=== PATIENT | female | born 1970 | race Asian ===

== ENCOUNTER 2024-02-13 21:21 | Inpatient (IN) | payer OTHER ==
[~2024-02-13] VITALS: Ht 165.1 cm; Wt 71.7 kg
[2024-02-13 21:41] VITALS: BP 183/94; PULSE 69; RESP 18; TEMP 98.2; O2SAT 96
[2024-02-13 22:29] LABS: BASOPHILS % (AUTO) 0.2 % (0.0-2.0); EOSINOPHILS % (AUTO) 0.1 % (0.0-4.0); HEMATOCRIT 39.9 % (36-48); LYMPHOCYTES # (AUTO) 0.6 K/uL (2.5-16.5); MEAN CORPUSCULAR HEMOGLOBIN 27 pg (27-31); MEAN CORPUSCULAR HGB CONC 33 g/dL (33-37); MONOCYTES # (AUTO) 0.4 K/uL (0.8-1.0); MONOCYTES % (AUTO) 3.2 % (1.7-9.3); NEUTROPHILS # (AUTO) 11.1 K/uL (1.8-7.7); PLATELET COUNT (AUTO) 261 K/uL (140-450); RED BLOOD CELL COUNT(AUTO) 4.75 MIL/uL (4.20-5.40); RED CELL DISTRIBUTION WIDTH 16.6 % (11.6-13.7); WHITE BLOOD COUNT (AUTO) 12.1 K/uL (4.8-10.8)
[2024-02-13 22:30] LABS: APPEARANCE,URINE CLOUDY (CLEAR); BILIRUBIN,URINE NEGATIVE (NEGATIVE); BLOOD, URINE 1+ (NEGATIVE); COLOR,URINE YELLOW (YELLOW); LEUKOCYTE ESTERASE ,URINE NEGATIVE (NEGATIVE); NITRITE, URINE NEGATIVE (NEGATIVE); PROTEIN,URINE 3+ (NEGATIVE); UGLUCOSE TRACE (NEGATIVE); UROBILINOGEN,URINE 0.2 EU/dL (0.2 - 1)
[2024-02-13 22:31] VITALS: O2SAT 96
[2024-02-13 22:43] LABS: BACTERIA,URINE 2+ /HPF (None Seen); WBC,URINE 0-5 /HPF (0-5)
[2024-02-13 22:44] LABS: SQUAMOUS EPITHELIAL CELL,UR 4-10 (MOD) /LPF (0-3 (FEW)); URINE AMORPHOUS PHOSPHATES 1+ /HPF (None Seen)
[2024-02-13 22:47] LABS: CALCIUM 8.7 mg/dL (8.5-10.1); CREATININE 0.9 mg/dL (0.6-1.3); POTASSIUM 3.5 mmol/L (3.5-5.1)
[2024-02-13 22:52] LABS: CARBON DIOXIDE 29.5 mmol/L (21-32)
[2024-02-13 22:54] LABS: ALANINE AMINOTRANSFERASE 38 U/L (12-78); ALBUMIN 3.7 g/dL (3.4-5.0); ALKALINE PHOSPHATASE 83 U/L (50-136); ASPARTATE AMINOTRANSFERASE 24 U/L (15-37); BILIRUBIN,DIRECT 0.3 mg/dL (0.0-0.3); LIPASE 54 U/L (16-77); TOTAL BILIRUBIN 1.6 mg/dL (0.0-1.0); TOTAL PROTEIN, SERUM 8.5 g/dL (6.4-8.2)
[2024-02-13 22:56] LABS: NEUTROPHILS % (AUTO) 91.5 % (42.2-75.2)
[2024-02-13] MEDS: NACL 0.9% 1,000 ML IV ONE (23:00)
[2024-02-13] MEDS: KETOROLAC 30 MG/ML VIAL IVP ONE (23:02)
[2024-02-13] MEDS: ONDANSETRON 4 MG/2 ML VIAL IVP ONE (23:02)
[2024-02-14] VITALS (7 sets, daily range): BP systolic 147; BP diastolic 80–84; PULSE 18–78; RESP 18; TEMP 98.3; O2SAT 94–98
[2024-02-14] MEDS ORDERED: PIPERACILLIN/TAZOBACTAM 3.375 GM VIAL IV ONE (01:55)
[2024-02-14] MEDS ORDERED: MAG SULF 2000 MG/WATER PREMIX 50 ML IV PRN (02:00)
[2024-02-14] MEDS ORDERED: KCL 20 MEQ IN 100 mL PREMIX 200 ML IV PRN (02:00)
[2024-02-14] MEDS ORDERED: ONDANSETRON 4 MG/2 ML VIAL IVP PRN (02:00)
[2024-02-14] MEDS: PIPERACILLIN/TAZOBACTAM 3.375 GM in DEXTROSE 5% 50 ML IV ONE (02:01)
[2024-02-14] MEDS: NACL 0.9% 1,000 ML IV SCH (02:23)
[2024-02-14] MEDS: MORPHINE SULFATE 4 MG/ML SYR IVP PRN (03:58)
[2024-02-14 08:17] LABS: BASOPHILS % (AUTO) 0.1 % (0.0-2.0); HEMATOCRIT 37.9 % (36-48); HEMOGLOBIN 12.3 g/dL (12.0-16.0); LYMPHOCYTES # (AUTO) 0.8 K/uL (2.5-16.5); LYMPHOCYTES % (AUTO) 6.6 % (20.5-51.1); MEAN CORPUSCULAR HEMOGLOBIN 27 pg (27-31); MEAN CORPUSCULAR HGB CONC 33 g/dL (33-37); MEAN CORPUSCULAR VOLUME 84.2 fL (80-94); MONOCYTES # (AUTO) 1.1 K/uL (0.8-1.0); MONOCYTES % (AUTO) 8.9 % (1.7-9.3); NEUTROPHILS # (AUTO) 10.6 K/uL (1.8-7.7); NEUTROPHILS % (AUTO) 84.4 % (42.2-75.2); PLATELET COUNT (AUTO) 243 K/uL (140-450); RED CELL DISTRIBUTION WIDTH 16.4 % (11.6-13.7); WHITE BLOOD COUNT (AUTO) 12.6 K/uL (4.8-10.8)
[2024-02-14 08:25] LABS: INR 0.99 (0.8-1.2); PARTIAL THROMBOPLASTIN TIME 26.3 secs (22-35.6); PROTHROMBIN TIME 10.4 secs (10.8-13.4)
[2024-02-14 08:27] LABS: ALBUMIN 3.2 g/dL (3.4-5.0); ANION GAP 12.4 (8-16); CARBON DIOXIDE 27.3 mmol/L (21-32); CREATININE 0.9 mg/dL (0.6-1.3); POTASSIUM 3.7 mmol/L (3.5-5.1); TOTAL BILIRUBIN 2.6 mg/dL (0.0-1.0); TOTAL PROTEIN, SERUM 7.6 g/dL (6.4-8.2)
[2024-02-14] MEDS: DOCUSATE SODIUM 100 MG GELCAP PO SCH (10:20)
[2024-02-14] MEDS: ACETAMINOPHEN 325 MG TAB PO PRN (10:21)
[2024-02-14] MEDS: AMPICILLIN/SULBACTAM 3 GM in NACL 0.9% 100 ML IV SCH (13:00)
[2024-02-14] MEDS: MEDS-TO-BEDS MC SCH (21:41)
[2024-02-15] VITALS (7 sets, daily range): BP systolic 148–178; BP diastolic 89–104; PULSE 67–86; RESP 18; TEMP 96.4–98.5; O2SAT 94–97
[2024-02-15 06:52] LABS: BASOPHILS % (AUTO) 0.2 % (0.0-2.0); EOSINOPHILS # (AUTO) 0.1 K/uL (0-0.4); EOSINOPHILS % (AUTO) 1.5 % (0.0-4.0); LYMPHOCYTES # (AUTO) 0.8 K/uL (2.5-16.5); MEAN CORPUSCULAR HEMOGLOBIN 28 pg (27-31); MEAN CORPUSCULAR HGB CONC 34 g/dL (33-37); MONOCYTES # (AUTO) 0.6 K/uL (0.8-1.0); MONOCYTES % (AUTO) 6.3 % (1.7-9.3); NEUTROPHILS # (AUTO) 7.6 K/uL (1.8-7.7); PLATELET COUNT (AUTO) 230 K/uL (140-450); RED BLOOD CELL COUNT(AUTO) 4.28 MIL/uL (4.20-5.40); RED CELL DISTRIBUTION WIDTH 16.6 % (11.6-13.7); WHITE BLOOD COUNT (AUTO) 9.2 K/uL (4.8-10.8)
[2024-02-15 07:01] LABS: ALBUMIN 2.9 g/dL (3.4-5.0); ANION GAP 12.6 (8-16); CARBON DIOXIDE 26.7 mmol/L (21-32); CREATININE 0.8 mg/dL (0.6-1.3); MAGNESIUM 1.9 mg/dL (1.8-2.4); POTASSIUM 3.3 mmol/L (3.5-5.1); TOTAL BILIRUBIN 2.1 mg/dL (0.0-1.0); TOTAL PROTEIN, SERUM 7.2 g/dL (6.4-8.2)
[2024-02-15 07:09] LABS: BILIRUBIN,DIRECT 0.4 mg/dL (0.0-0.3)
[2024-02-15] MEDS: hydrALAZINE 25 MG TAB PO PRN (08:33)
[2024-02-15] MEDS: POTASSIUM CHLORIDE 10 MEQ TABER PO PRN (08:33)
[2024-02-15] MEDS: HYDROcodone/APAP 5/325 MG 1 TAB TAB PO PRN (13:10)
[2024-02-15] MEDS: hydrALAZINE 20 MG/ML VIAL IVP PRN (17:42)
[2024-02-16] VITALS: BP 155/85; PULSE 70; PULSE 86; RESP 18; TEMP 98.5; O2SAT 97
[2024-02-16 04:00] VITALS: BP 152/85; PULSE 84; RESP 18; TEMP 98.3; O2SAT 97
[2024-02-16 06:14] LABS: BASOPHILS % (AUTO) 0.4 % (0.0-2.0); EOSINOPHILS # (AUTO) 0.2 K/uL (0-0.4); EOSINOPHILS % (AUTO) 2.8 % (0.0-4.0); HEMATOCRIT 37.1 % (36-48); HEMOGLOBIN 12.2 g/dL (12.0-16.0); LYMPHOCYTES % (AUTO) 13.7 % (20.5-51.1); MEAN CORPUSCULAR HEMOGLOBIN 28 pg (27-31); MEAN CORPUSCULAR HGB CONC 33 g/dL (33-37); MEAN CORPUSCULAR VOLUME 83.8 fL (80-94); MONOCYTES # (AUTO) 0.5 K/uL (0.8-1.0); MONOCYTES % (AUTO) 7.3 % (1.7-9.3); NEUTROPHILS # (AUTO) 5.7 K/uL (1.8-7.7); NEUTROPHILS % (AUTO) 75.8 % (42.2-75.2); PLATELET COUNT (AUTO) 252 K/uL (140-450); RED BLOOD CELL COUNT(AUTO) 4.42 MIL/uL (4.20-5.40); RED CELL DISTRIBUTION WIDTH 16.6 % (11.6-13.7); WHITE BLOOD COUNT (AUTO) 7.5 K/uL (4.8-10.8)
[2024-02-16 06:41] LABS: ALBUMIN 2.6 g/dL (3.4-5.0); ANION GAP 11.9 (8-16); CALCIUM 7.9 mg/dL (8.5-10.1); CARBON DIOXIDE 25.6 mmol/L (21-32); CREATININE 0.7 mg/dL (0.6-1.3); MAGNESIUM 1.8 mg/dL (1.8-2.4); POTASSIUM 3.5 mmol/L (3.5-5.1); TOTAL BILIRUBIN 1.3 mg/dL (0.0-1.0); TOTAL PROTEIN, SERUM 6.8 g/dL (6.4-8.2)
[2024-02-16] MEDS: LACTATED RINGERS 1,000 ML IV SCH (07:20)
[2024-02-16] MEDS ORDERED: ACETAMINOPHEN 100 ML IV SCH (07:20)
[2024-02-16] MEDS ORDERED: ONDANSETRON 4 MG/2 ML VIAL IVP PRN (07:20)
[2024-02-16] MEDS: LIDOCAINE/EPI 1% 1:100000 20 ML VIAL INJ ONE ×2 (07:27→09:49)
[2024-02-16] MEDS ORDERED: SEVOFLURANE 250 ML BTL INH ONE (07:36)
[2024-02-16] MEDS: MIDAZOLAM 2 MG/2 ML VIAL ONE (07:38)
[2024-02-16] MEDS: fentaNYL citrate 0.05 MG/ML VIAL ONE (07:38)
[2024-02-16] MEDS: METOCLOPRAMIDE 10 MG/2 ML INJ VIAL ONE (07:39)
[2024-02-16] MEDS: ONDANSETRON 4 MG/2 ML VIAL ONE (07:39)
[2024-02-16] MEDS: DEXAMETHASONE 4 MG/ML VIAL ONE (07:39)
[2024-02-16] MEDS: PROPOFOL 200 MG/20 ML VIAL IV ONE (07:40)
[2024-02-16] MEDS: SUCCINYLCHOLINE CHLORIDE 200 MG/10 ML VIAL IVP ONE (07:40)
[2024-02-16] MEDS: ROCURONIUM 50 MG/5 ML VIAL IV ONE (07:40)
[2024-02-16] MEDS: ceFAZolin 2,000 MG VIAL ONE (07:48)
[2024-02-16] MEDS: HYDROmorphone 1 MG/ML AMP IVP PRN (09:42)
[2024-02-16] MEDS: HYDROmorphone PFS 2 MG/ML SYR ONE (09:49)
[2024-02-16] MEDS: SUGAMMADEX SODIUM 200 MG/2 ML VIAL IV ONE (09:50)
[2024-02-16 10:20] VITALS: BP 155/86; PULSE 91; RESP 20; TEMP 97; O2SAT 95
[2024-02-16] MEDS: PANTOPRAZOLE 40 MG INJ VIAL IVP SCH (15:24)
[2024-02-16 16:00] VITALS: BP 156/99; PULSE 82; RESP 19; TEMP 96.3; O2SAT 95
[2024-02-16 20:00] VITALS: BP 177/98; PULSE 82; RESP 20; TEMP 97.5; O2SAT 95
[2024-02-17] VITALS: BP 149/83; PULSE 83; RESP 19; TEMP 97.4; O2SAT 96
[2024-02-17 04:00] VITALS: BP 175/79; PULSE 79; RESP 18; TEMP 97.6; O2SAT 94
[2024-02-17 06:48] LABS: BASOPHILS % (AUTO) 0.2 % (0.0-2.0); EOSINOPHILS # (AUTO) 0.1 K/uL (0-0.4); EOSINOPHILS % (AUTO) 0.7 % (0.0-4.0); HEMATOCRIT 36.9 % (36-48); HEMOGLOBIN 12.1 g/dL (12.0-16.0); LYMPHOCYTES # (AUTO) 1.3 K/uL (2.5-16.5); LYMPHOCYTES % (AUTO) 18.2 % (20.5-51.1); MEAN CORPUSCULAR HEMOGLOBIN 28 pg (27-31); MEAN CORPUSCULAR HGB CONC 33 g/dL (33-37); MEAN CORPUSCULAR VOLUME 84.2 fL (80-94); MONOCYTES # (AUTO) 0.7 K/uL (0.8-1.0); MONOCYTES % (AUTO) 9.6 % (1.7-9.3); NEUTROPHILS # (AUTO) 5.2 K/uL (1.8-7.7); NEUTROPHILS % (AUTO) 71.3 % (42.2-75.2); PLATELET COUNT (AUTO) 288 K/uL (140-450); RED BLOOD CELL COUNT(AUTO) 4.38 MIL/uL (4.20-5.40); RED CELL DISTRIBUTION WIDTH 16.5 % (11.6-13.7); WHITE BLOOD COUNT (AUTO) 7.3 K/uL (4.8-10.8)
[2024-02-17 08:00] VITALS: BP 160/91; PULSE 85; RESP 19; TEMP 96.6; O2SAT 95
[2024-02-17 09:58] LABS: ALBUMIN 2.7 g/dL (3.4-5.0); ANION GAP 14.9 (8-16); CALCIUM 8.1 mg/dL (8.5-10.1); CARBON DIOXIDE 23.2 mmol/L (21-32); CREATININE 0.8 mg/dL (0.6-1.3); POTASSIUM 3.1 mmol/L (3.5-5.1); TOTAL BILIRUBIN 1.1 mg/dL (0.0-1.0)
[2024-02-17 10:16] LABS: MAGNESIUM 1.7 mg/dL (1.8-2.4)
[2024-02-17] MEDS: MAGNESIUM OXIDE 400 MG TAB PO PRN (11:12)
[2024-02-17] MEDS ORDERED: ACET-9535 PO (14:34)
[2024-02-17 16:00] VITALS: BP 192/105; PULSE 99; RESP 19; TEMP 97.3; O2SAT 96
[2024-02-17 20:00] VITALS: BP 125/80; PULSE 95; PULSE 98; RESP 16; TEMP 98.7; O2SAT 98
[2024-02-18 04:00] VITALS: BP 159/89; PULSE 82; PULSE 97; RESP 18; TEMP 98.6; O2SAT 97
[2024-02-18 06:36] LABS: BASOPHILS % (AUTO) 0.3 % (0.0-2.0); EOSINOPHILS # (AUTO) 0.1 K/uL (0-0.4); EOSINOPHILS % (AUTO) 1.8 % (0.0-4.0); HEMOGLOBIN 12.1 g/dL (12.0-16.0); LYMPHOCYTES # (AUTO) 1.2 K/uL (2.5-16.5); LYMPHOCYTES % (AUTO) 20.5 % (20.5-51.1); MEAN CORPUSCULAR HEMOGLOBIN 28 pg (27-31); MEAN CORPUSCULAR HGB CONC 33 g/dL (33-37); MEAN CORPUSCULAR VOLUME 83.9 fL (80-94); MONOCYTES # (AUTO) 0.5 K/uL (0.8-1.0); MONOCYTES % (AUTO) 9.2 % (1.7-9.3); NEUTROPHILS % (AUTO) 68.2 % (42.2-75.2); PLATELET COUNT (AUTO) 290 K/uL (140-450); RED BLOOD CELL COUNT(AUTO) 4.41 MIL/uL (4.20-5.40); RED CELL DISTRIBUTION WIDTH 16.7 % (11.6-13.7); WHITE BLOOD COUNT (AUTO) 5.9 K/uL (4.8-10.8)
[2024-02-18 07:42] LABS: ALBUMIN 2.7 g/dL (3.4-5.0); CALCIUM 8.4 mg/dL (8.5-10.1); CARBON DIOXIDE 27.2 mmol/L (21-32); CREATININE 0.8 mg/dL (0.6-1.3); MAGNESIUM 1.9 mg/dL (1.8-2.4); POTASSIUM 3.2 mmol/L (3.5-5.1)
[2024-02-18 08:00] VITALS: BP 170/107; PULSE 18; PULSE 80; PULSE 96; RESP 16; RESP 18; TEMP 97.3; O2SAT 96; O2SAT 98
[2024-02-18] MEDS: LOSARTAN 25 MG TAB PO SCH (09:49)
[2024-02-18] MEDS: FUROSEMIDE 20 MG/2 ML VIAL IVP SCH (09:51)
[2024-02-18] MEDS ORDERED: LOSA-269 PO (09:59)
[2024-02-18 13:53] VITALS: BP 171/93; PULSE 83; RESP 20; TEMP 97.5
== END 2024-02-18 14:55 | disposition home or self-care (01) | DRG 263 ==
LOC: MED 21:21 → MTU 02-14 02:02
PROVIDERS: ADMIT Hospitalist; ATTEND Hospitalist
PROC: 0FT44ZZ Resection of Gallbladder, Percutaneous Endoscopic Approach (ICD-10-PCS; principal; 2024-02-16 07:30)
DX: K81.0 Acute cholecystitis (principal); R65.10 Systemic inflammatory response syndrome (SIRS) of non-infectious origin without acute organ dysfunction; I10 Essential (primary) hypertension; Z98.891 History of uterine scar from previous surgery
CPT/HCPCS: 36415; 71045; 71275; 76705; 78445; 80048; 80053; 80076; 81001; 81025; 82247; 82248; 83690; 83735; 84484; 85025; 85379; 85610; 85730; 87040; 87081; 87086; 88304; 88305; 88312; 88342; 93005; 96361; 96365; 96375; 99285; J0295; J0330; J0360; J1100; J1170; J1885; J1940; J2001; J2250; J2270; J2405; J2470; J2543; J2704; J2765; J3010; J3490; J7030; Q0092; Q9967